=== PATIENT | female | born 1955 | race Caucasian/White ===

== ENCOUNTER 2018-08-28 22:23 | Emergency (ER) | payer OTHER ==
[~2018-08-28] VITALS: Ht 154.9 cm; Wt 59.0 kg
[2018-08-29] MEDS ORDERED: AUGMENTIN 500-1 EACH PO (01:55)
[2018-08-29 02:21] VITALS: BP 150/66
== END 2018-08-29 02:23 | disposition home or self-care (01) ==
LOC: ER 22:23
DX: S61.451A Open bite of right hand, initial encounter (principal); Z90.710 Acquired absence of both cervix and uterus; W54.0XXA Bitten by dog, initial encounter; Y92.89 Other specified places as the place of occurrence of the external cause; Y93.89 Activity, other specified; Y99.8 Other external cause status